=== PATIENT | male | born 2000 | race Caucasian/White ===

== ENCOUNTER 2019-07-25 16:56 | Emergency (ER) | payer OTHER ==
[~2019-07-25] VITALS: Ht 180.3 cm; Wt 79.4 kg
--- NOTE | 2019-07-25 17:22 | NUR ---
PT WAS EVALUATED BY DR RIZO. PT WAS D/C'd TO HOME. D/C INSTRUCTIONS GIVEN TO THE PT.
[2019-07-25 17:26] VITALS: BP 128/83
== END 2019-07-25 17:27 | disposition home or self-care (01) ==
LOC: ER 16:56
DX: H05.012 Cellulitis of left orbit (principal)
CPT/HCPCS: A4663

== ENCOUNTER 2020-06-27 15:26 | Emergency (ER) | payer MEDICAID, OTHER ==
[~2020-06-27] VITALS: Ht 180.3 cm; Wt 77.1 kg
[2020-06-27] MEDS ORDERED: NEOM10DR11 OT (15:53)
[2020-06-27] MEDS ORDERED: AMOX-430 PO (15:53)
--- NOTE | 2020-06-27 15:59 | NUR ---
Patient discharged to home in stable condition. Written and verbal after care instructions given. Patient verbalizes understanding of instructions. Stressed follow up or return to ER for worsening s/s.
== END 2020-06-27 16:00 | disposition home or self-care (01) ==
LOC: ER 15:26
DX: H60.92 Unspecified otitis externa, left ear (principal)
CPT/HCPCS: A4663